=== PATIENT | female | born 1975 | race Caucasian/White ===

== ENCOUNTER 2023-03-20 09:12 | Day surgery (SDC) | payer OTHER, SELFPAY ==
[2023-03-20] VITALS (11 sets, daily range): BP systolic 87–123; BP diastolic 55–74; PULSE 76–105; RESP 14–21; TEMP 36.6–37.6; O2SAT 96–100; BMI 29.2
--- NOTE | 2023-03-20 10:02 | PC.NURSE ---
Pt states that she has hx of crohns disease and surgey of perineal
--- NOTE | 2023-03-20 10:55 | ED_ITS ---
HPI - Skin/Abscess/Foreign Bdy <Gustavo Fox PA-C - Last Filed: 03/20/23 17:18> General Chief complaint: Skin/Abscess/Foreign Body Stated complaint: abscess Time Seen by Provider: 03/20/23 09:15 Source: patient Mode of arrival: Ambulatory Limitations: no limitations History of Present Illness HPI narrative: This is a 47-year-old female presents to the emergency department due to pain to her gluteal area onset 2 days ago. She states she has a history of a perirectal 20 years ago which was drained in surgery. She states she was some issue over there. She reports new pain building up the scar tissue with erythema. She also reports some subjective fevers and chills. Denies any other concerning signs or symptoms. Related Data Home Medications Medication Instructions Recorded Confirmed mesalamine 250 mg capsule,extended 250 mg PO 3XD 03/20/23 03/20/23 release Previous Rx's Medication Instructions Recorded acetaminophen 325 mg capsule 650 mg (2 x 325 mg) PO QID PRN 03/20/23 (Tylenol) pain #60 caps docusate sodium 100 mg capsule 100 mg PO BID #30 caps 03/20/23 (Colace) ibuprofen 200 mg tablet 400 mg (2 x 200 mg) PO Q6H #60 tabs 03/20/23 oxycodone 5 mg tablet 5 mg PO Q6H PRN pain #20 tabs 03/20/23 Allergies Allergy/AdvReac Type Severity Reaction Status Date / Time No Known Drug Allergies Allergy Verified 03/20/23 14:53 Review of Systems <Gustavo Fox PA-C - Last Filed: 03/20/23 17:18> Review of Systems Narrative: GENERAL: Denies chills, fatigue, malaise, fever, sweats. HEENT: Denies sinus pain, ear pain, sore throat, difficulty swallowing, dizziness. RESPIRATORY: Denies dyspnea, cough, wheezing, hemoptysis, sputum. CARDIOVASCULAR: Denies chest pain, palpitations, orthopnea, edema, GASTROINTESTINAL: Denies nausea, vomiting, abdominal pain, diarrhea, constipation, melena. : Denies dysuria, frequency, incontinence, hematuria, urinary retention. MUSCULOSKELETAL: denies weakness, joint pain, or bony pain SKIN: Gluteal abscess NEUROLOGIC: Denies weakness, headache, numbness, change in speech, confusion, seizures, incoordination. PSYCHIATRIC: No concerning psychosocial issues. 12 point review of systems is negative except for those stated above Patient History <Gustavo Fox PA-C - Last Filed: 03/20/23 17:18> Medical History (Updated 03/20/23 @ 15:03 by Ze Naranjo MD) Ulcerative colitis Social History household members: spouse Smoking Status: Never smoker alcohol intake: former Smoking Status: Never smoker Substance Use Type: does not use Exam <Gustavo Fox PA-C - Last Filed: 03/20/23 17:18> Narrative Exam Narrative: GENERAL: Well-developed patient, in mild distress. HEAD: Atraumatic. Normocephalic. EYES: Pupils equal round and reactive. Extraocular motions intact. No scleral icterus. No injection or drainage. ENT: Nose without bleeding, purulent drainage. Throat without erythema, tonsillar hypertrophy or exudate. Airway patent. NECK: Trachea midline. Non tender CARDIOVASCULAR: Regular rate and rhythm without murmurs, gallops, or rubs. RESPIRATORY: Clear to auscultation. Breath sounds equal bilaterally. No wheezes, rales, or rhonchi. GASTROINTESTINAL: Abdomen soft, non-tender, nondistended. EXTREMITIES: No edema or joint tenderness. BACK: Nontender without deformity or crepitance. No flank tenderness. NEURO: AOx3. SKIN: To the left gluteal fold there is a palpable area of fluctuance with surrounding erythema approximately 8 cm in Initial Vital Signs Initial Vital Signs: Vital Signs Temperature 98.5 F 03/20/23 09:26 Pulse Rate 105 H 03/20/23 09:26 Respiratory Rate 18 03/20/23 09:26 Blood Pressure 118/62 03/20/23 09:26 Pulse Oximetry 97 03/20/23 09:26 Oxygen Delivery Method Room Air 03/20/23 09:26 <Suresh Kirk DO - Last Filed: 03/21/23 09:08> Initial Vital Signs Initial Vital Signs: Vital Signs Temperature 98.5 F 03/20/23 09:26 Pulse Rate 105 H 03/20/23 09:26 Respiratory Rate 18 03/20/23 09:26 Blood Pressure 118/62 03/20/23 09:26 Pulse Oximetry 97 03/20/23 09:26 Oxygen Delivery Method Room Air 03/20/23 09:26 Course <Gustavo Fox PA-C - Last Filed: 03/20/23 17:18> Orders Ordered: Discontinued Medications Bupivacaine HCl (Bupivacaine 0.25% (Pf) Vial) 30 ml INJ NOW ONE Stop: 03/20/23 15:36 Last Admin: 03/20/23 15:35 Dose: 30 ml Documented By: BRITTANY Hydromorphone HCl (Hydromorphone 1 Mg Inj) 0 mg IV Q5MIN PRN PRN Reason: Mod-severe pain Sodium Chloride (Normal Saline 0.9%) 1,000 mls @ 1,000 mls/hr IV BOLUS ONE Stop: 03/20/23 12:35 Last Infusion: 03/20/23 13:02 Dose: Infused Documented By: Admin: 03/20/23 11:40 Dose: 1,000 mls/hr Documented By: STEFFI Piperacillin Sod/Tazobactam (Sod 4.5 gm/ Sodium Chloride) 100 mls @ 200 mls/hr IV NOW ONE Stop: 03/20/23 12:41 Last Infusion: 03/20/23 14:09 Dose: Infused Documented By: Admin: 03/20/23 12:58 Dose: 200 mls/hr Documented By: STEFFI Vancomycin HCl (Vancomycin) 1,000 mg in 200 mls @ 200 mls/hr IV NOW ONE Stop: 03/20/23 13:39 Last Infusion: 03/20/23 14:52 Dose: Infused Documented By: Infusion: 03/20/23 14:13 Dose: 0 mls/hr Documented By: Admin: 03/20/23 13:34 Dose: 200 mls/hr Documented By: STEFFI Lactated Ringer's (Lactated Ringers) 1,000 mls @ 42 mls/hr IV CONT SAFIA Last Infusion: 03/20/23 16:57 Dose: Infused Documented By: Infusion: 03/20/23 14:51 Dose: 42 mls/hr Documented By: Infusion: 03/20/23 14:13 Dose: 0 mls/hr Documented By: Admin: 03/20/23 14:06 Dose: 42 mls/hr Documented By: HUNG Acetaminophen (Ofirmev) 1,000 mg in 100 mls @ 400 mls/hr IV NOW ONE Stop: 03/20/23 15:46 Last Infusion: 03/20/23 15:50 Dose: Infused Documented By: Admin: 03/20/23 15:35 Dose: 400 mls/hr Documented By: OSBALDO Ketorolac Tromethamine (Ketorolac 30 Mg/Ml Vial) 15 mg IV NOW ONE Stop: 03/20/23 13:47 Last Admin: 03/20/23 14:06 Dose: 15 mg Documented By: HUNG Metoclopramide HCl (Metoclopramide 10 Mg/2 Ml Inj) 10 mg IV NOW PRN PRN Reason: Nausea And Vomiting Ondansetron HCl (Ondansetron 4 Mg/2 Ml Inj) 4 mg IV NOW PRN PRN Reason: Nausea And Vomiting Consultations Consultation #1: 12 40: Discussed case with the on-call surgeon, Dr. Zafar, who is going to check on OR availability for possible OR today. will call us back. Consultation #2: 1400: Received call from OR stating that patient will be taken for next case. Vital Signs Vital signs: Vital Signs - 8 hr 03/20/23 09:26 03/20/23 10:43 03/20/23 11:34 Temperature 98.5 F 98.5 F Pulse Rate 105 H 79 85 Respiratory Rate 18 19 14 Blood Pressure 118/62 123/74 95/55 L Pulse Oximetry 97 97 98 Oxygen Delivery Method Room Air Room Air 03/20/23 12:35 03/20/23 13:43 03/20/23 14:39 Temperature 97.8 F Pulse Rate 80 80 83 Respiratory Rate 16 18 18 Blood Pressure 115/69 113/58 L 104/60 Pulse Oximetry 100 99 100 Oxygen Delivery Method Room Air Room Air Room Air 03/20/23 15:50 03/20/23 15:55 Temperature 99.7 F H Pulse Rate 78 83 Respiratory Rate 21 18 Blood Pressure 87/57 L 91/64 Pulse Oximetry 96 100 Oxygen Delivery Method Room Air Room Air <Suresh Kirk, - Last Filed: 03/21/23 09:08> Orders Ordered: Discontinued Medications Bupivacaine HCl (Bupivacaine 0.25% (Pf) Vial) 30 ml INJ NOW ONE Stop: 03/20/23 15:36 Last Admin: 03/20/23 15:35 Dose: 30 ml Documented By: BRITTANY Hydromorphone HCl (Hydromorphone 1 Mg Inj) 0 mg IV Q5MIN PRN PRN Reason: Mod-severe pain Sodium Chloride (Normal Saline 0.9%) 1,000 mls @ 1,000 mls/hr IV BOLUS ONE Stop: 03/20/23 12:35 Last Infusion: 03/20/23 13:02 Dose: Infused Documented By: Admin: 03/20/23 11:40 Dose: 1,000 mls/hr Documented By: STEFFI Piperacillin Sod/Tazobactam (Sod 4.5 gm/ Sodium Chloride) 100 mls @ 200 mls/hr IV NOW ONE Stop: 03/20/23 12:41 Last Infusion: 03/20/23 14:09 Dose: Infused Documented By: Admin: 03/20/23 12:58 Dose: 200 mls/hr Documented By: STEFFI Vancomycin HCl (Vancomycin) 1,000 mg in 200 mls @ 200 mls/hr IV NOW ONE Stop: 03/20/23 13:39 Last Infusion: 03/20/23 14:52 Dose: Infused Documented By: Infusion: 03/20/23 14:13 Dose: 0 mls/hr Documented By: Admin: 03/20/23 13:34 Dose: 200 mls/hr Documented By: STEFFI Lactated Ringer's (Lactated Ringers) 1,000 mls @ 42 mls/hr IV CONT SAFIA Last Infusion: 03/20/23 16:57 Dose: Infused Documented By: Infusion: 03/20/23 14:51 Dose: 42 mls/hr Documented By: Infusion: 03/20/23 14:13 Dose: 0 mls/hr Documented By: Admin: 03/20/23 14:06 Dose: 42 mls/hr Documented By: HUNG Acetaminophen (Ofirmev) 1,000 mg in 100 mls @ 400 mls/hr IV NOW ONE Stop: 03/20/23 15:46 Last Infusion: 03/20/23 15:50 Dose: Infused Documented By: Admin: 03/20/23 15:35 Dose: 400 mls/hr Documented By: OSBALDO Ketorolac Tromethamine (Ketorolac 30 Mg/Ml Vial) 15 mg IV NOW ONE Stop: 03/20/23 13:47 Last Admin: 03/20/23 14:06 Dose: 15 mg Documented By: SB Metoclopramide HCl (Metoclopramide 10 Mg/2 Ml Inj) 10 mg IV NOW PRN PRN Reason: Nausea And Vomiting Ondansetron HCl (Ondansetron 4 Mg/2 Ml Inj) 4 mg IV NOW PRN PRN Reason: Nausea And Vomiting Vital Signs Vital signs: Vital Signs - 8 hr 03/20/23 09:26 03/20/23 10:43 03/20/23 11:34 Temperature 98.5 F 98.5 F Pulse Rate 105 H 79 85 Respiratory Rate 18 19 14 Blood Pressure 118/62 123/74 95/55 L Pulse Oximetry 97 97 98 Oxygen Delivery Method Room Air Room Air 03/20/23 12:35 03/20/23 13:43 03/20/23 14:39 Temperature 97.8 F Pulse Rate 80 80 83 Respiratory Rate 16 18 18 Blood Pressure 115/69 113/58 L 104/60 Pulse Oximetry 100 99 100 Oxygen Delivery Method Room Air Room Air Room Air 03/20/23 15:50 03/20/23 15:55 Temperature 99.7 F H Pulse Rate 78 83 Respiratory Rate 21 18 Blood Pressure 87/57 L 91/64 Pulse Oximetry 96 100 Oxygen Delivery Method Room Air Room Air MDM - Skin/Abscess/Foreign Bdy <Gustavo Fox PA-C - Last Filed: 03/20/23 17:18> Lab Data 03/20/23 09:57 03/20/23 09:57 Labs: Lab Results 03/20/23 Range/Units 09:57 WBC 14.8 H (4.5-11.0) X10^3/uL RBC 4.37 (4.0-5.2) X10^6/uL Hgb 12.9 (12.0-16.0) g/dL Hct 38.1 (36-46) % MCV 87.0 (80-100) fL MCH 29.5 (26-34) PG MCHC 33.9 (30-36) % RDW 13.6 (11.6-14.8) % Plt Count 348 (150-400) X10^3/uL Neut % (Auto) 75.6 H (50-75) % Lymph % (Auto) 13.7 L (25-40) % Bartholomew % (Auto) 9.8 (3-14) % Eos % (Auto) 0.5 L (2-4) % Baso % (Auto) 0.4 (0-2) % Neut # (Auto) 21426 H (6485-3632) /uL Lymph # (Auto) 2000 (5689-5505) /uL Bartholomew # (Auto) 1400 H (0-900) /uL Eos # (Auto) 100 (0-450) /uL Baso # (Auto) 100 (0-100) /uL Sodium 136 L (137-145) mmol/L Potassium 3.5 (3.4-5.1) mmol/L Chloride 103 (98-107) mmol/L Carbon Dioxide 23 (22-32) mmol/L BUN 13 (7-17) mg/dL Creatinine 0.79 (0.52-1.04) mg/dL Estimated GFR > 60 (>60) mL/min BUN/Creatinine Ratio 16.5 (6-22) Glucose 109 H (70-100) mg/dL Lactate 1.0 (0.7-2.1) mmol/L Calcium 9.5 (8.4-10.2) mg/dL Total Bilirubin 0.8 (0.2-1.3) mg/dL AST 29 (14-36) IU/L ALT 24 (<35) IU/L Alkaline Phosphatase 79 (38-126) U/L Total Protein 8.0 (6.3-8.2) g/dL Albumin 4.3 (3.5-5.0) g/dL Globulin 3.7 (1.7-4.1) g/dL Albumin/Globulin Ratio 1.2 (1.0-2.8) Imaging Data CT scan - abdomen/pelvis: Radiologist's Impression: [place] [id number] CT Scan Report Signed Patient: Korina Campuzano MR#: [id number] : 1975 Acct:[id number] Age/Sex: 47 / F Date of Service: 03/20/23 Loc: ED Accession Number: [id number] Procedure: CT abdomen pelvis w con Ordering Provider: Gustavo Fox P.A-C PROCEDURE: CT ABDOMEN PELVIS W CON INDICATIONS: possible perirectal abscess TECHNIQUE: After the administration of intravenous contrast, axial sections acquired from the lung bases to the pubic symphysis. Coronal and sagittal reformats were performed. For radiation dose reduction, the following was used: automated exposure control, adjustment of mA and/or kV according to patient size. COMPARISON: None. FINDINGS: Image quality: Excellent. Lung bases: Unremarkable. Heart: No significant findings. ABDOMEN: Liver: Unremarkable. Gallbladder: Unremarkable. Biliary ducts: Unremarkable. Pancreas: Unremarkable. Spleen: Multiple splenic calcifications are present. Adrenal Glands: Unremarkable. Kidneys and Ureters: Unremarkable. Stomach and Bowel: Stomach, small bowel loops, and colon are unremarkable. Normal appendix. Peritoneum: No abnormal intraperitoneal fluid. No free air. Ventral Wall: No hernias. Abdominal Nodes: No retroperitoneal or mesenteric adenopathy by size criteria. Vessels: Aorta and inferior vena cava are normal in size. PELVIS: Pelvic Organs: Unremarkable. Bladder: Unremarkable. Pelvic Nodes: No enlarged lymph nodes. Miscellaneous: No hernias are seen. Within the left ischial rectal fossa medially, there is a peripherally enhancing low-density focus at the left lateral aspect of the anal rectal junction, measuring roughly 25 mm anteroposterior, with an adjacent fistulous tract extending inferomedially to the gluteal crease, with severe surrounding fat stranding. Bones: Unremarkable. IMPRESSION: 1. Perirectal abscess as described above. 2. Normal appendix. Dictated by: Federica Head M.D. on 03/20/2023 at 12:27 Approved by: Federica Head M.D. on 03/20/2023 at 12:28 MDM Narrative Medical decision making narrative: MDM * differential diagnosis includes but not limited to cellulitis, perirectal abscess, perirectal fistula * Prior records reviewed: Patient has not been to the emergency department in the past. * My lab interpretation: Showed mild leukocytosis of 14.8. Lactate within normal limits. * My imgaing interpretation: CT findings as above. Evidence of perirectal abscess with a fistulous tract. * Clinical Decision Rules/Scores evaluated: None * Independent discussions with: None ED Course: This is a 47-year-old female presents emergency department complaining of perirectal pain for the last couple of days. She has a history of perirectal abscess needing surgery approximately 20 years ago. Lab work showed mild leukocytosis of 14.8. Patient was given fluids, blood cultures drawn. Given vancomycin and Zosyn empirically. CT ordered which showed evidence of the perirectal abscess with a fistula tract. This was discussed with on-call surgeon, Dr. Zafar, who stated that the patient will be taken to the OR after he checked for OR availability. Patient will be taken to the OR and admitted to the hospital Shared Decision Making: Discussed plan with the patient who is comfortable with the plan Social Considerations: None Disposition: Admitted for surgery <Surseh Kirk DO - Last Filed: 03/21/23 09:08> Lab Data Labs: Lab Results 03/20/23 Range/Units 09:57 WBC 14.8 H (4.5-11.0) X10^3/uL RBC 4.37 (4.0-5.2) X10^6/uL Hgb 12.9 (12.0-16.0) g/dL Hct 38.1 (36-46) % MCV 87.0 (80-100) fL MCH 29.5 (26-34) PG MCHC 33.9 (30-36) % RDW 13.6 (11.6-14.8) % Plt Count 348 (150-400) X10^3/uL Neut % (Auto) 75.6 H (50-75) % Lymph % (Auto) 13.7 L (25-40) % Bartholomew % (Auto) 9.8 (3-14) % Eos % (Auto) 0.5 L (2-4) % Baso % (Auto) 0.4 (0-2) % Neut # (Auto) 76084 H (0479-5661) /uL Lymph # (Auto) 2000 (3472-3141) /uL Bartholomew # (Auto) 1400 H (0-900) /uL Eos # (Auto) 100 (0-450) /uL Baso # (Auto) 100 (0-100) /uL Sodium 136 L (137-145) mmol/L Potassium 3.5 (3.4-5.1) mmol/L Chloride 103 (98-107) mmol/L Carbon Dioxide 23 (22-32) mmol/L BUN 13 (7-17) mg/dL Creatinine 0.79 (0.52-1.04) mg/dL Estimated GFR > 60 (>60) mL/min BUN/Creatinine Ratio 16.5 (6-22) Glucose 109 H (70-100) mg/dL Lactate 1.0 (0.7-2.1) mmol/L Calcium 9.5 (8.4-10.2) mg/dL Total Bilirubin 0.8 (0.2-1.3) mg/dL AST 29 (14-36) IU/L ALT 24 (<35) IU/L Alkaline Phosphatase 79 (38-126) U/L Total Protein 8.0 (6.3-8.2) g/dL Albumin 4.3 (3.5-5.0) g/dL Globulin 3.7 (1.7-4.1) g/dL Albumin/Globulin Ratio 1.2 (1.0-2.8) Discharge Plan Departure Patient Disposition: Admitted as Observation Clinical Impression: Abscess, perirectal ED Sign-out <Suresh Kirk DO - Last Filed: 03/21/23 09:08> Cosign ED Attending Vinodature Attestation: I was immediately available in the department for consultation. Documentation has been reviewed. I agree with assessment and plan.
--- NOTE | 2023-03-20 11:13 | DI.CT.S_ITS ---
PROCEDURE: CT ABDOMEN PELVIS W CON INDICATIONS: possible perirectal abscess TECHNIQUE: After the administration of intravenous contrast, axial sections acquired from the lung bases to the pubic symphysis. Coronal and sagittal reformats were performed. For radiation dose reduction, the following was used: automated exposure control, adjustment of mA and/or kV according to patient size. COMPARISON: None. FINDINGS: Image quality: Excellent. Lung bases: Unremarkable. Heart: No significant findings. ABDOMEN: Liver: Unremarkable. Gallbladder: Unremarkable. Biliary ducts: Unremarkable. Pancreas: Unremarkable. Spleen: Multiple splenic calcifications are present. Adrenal Glands: Unremarkable. Kidneys and Ureters: Unremarkable. Stomach and Bowel: Stomach, small bowel loops, and colon are unremarkable. Normal appendix. Peritoneum: No abnormal intraperitoneal fluid. No free air. Ventral Wall: No hernias. Abdominal Nodes: No retroperitoneal or mesenteric adenopathy by size criteria. Vessels: Aorta and inferior vena cava are normal in size. PELVIS: Pelvic Organs: Unremarkable. Bladder: Unremarkable. Pelvic Nodes: No enlarged lymph nodes. Miscellaneous: No hernias are seen. Within the left ischial rectal fossa medially, there is a peripherally enhancing low-density focus at the left lateral aspect of the anal rectal junction, measuring roughly 25 mm anteroposterior, with an adjacent fistulous tract extending inferomedially to the gluteal crease, with severe surrounding fat stranding. Bones: Unremarkable. IMPRESSION: 1. Perirectal abscess as described above. 2. Normal appendix. Dictated by: Federica Head M.D. on 03/20/2023 at 12:27 Approved by: Federica Head M.D. on 03/20/2023 at 12:28
[2023-03-20] MEDS: SODIUM CHLORIDE 0.9% 1,000 ML 1000 ML IV (11:40)
[2023-03-20 11:42] LABS: Add Manual Diff / Slide Review NO; Basophils Absolute Auto 100 /uL (0-100); Basophils Percent Auto 0.4 % (0-2); Eosinophils Absolute Auto 100 /uL (0-450); Eosinophils Percent Auto 0.5 % (2-4); Hematocrit 38.1 % (36-46); Hemoglobin 12.9 g/dL (12.0-16.0); Lymphocytes Absolute Auto 2000 /uL (1100-4500); Lymphocytes Percent Auto 13.7 % (25-40); Mean Corpuscular HGB Conc 33.9 % (30-36); Mean Corpuscular Hemoglobin 29.5 PG (26-34); Monocytes Absolute Auto 1400 /uL (0-900); Monocytes Percent Auto 9.8 % (3-14); Neutrophils Absolute Auto 11200 /uL (1500-7000); Neutrophils Percent Auto 75.6 % (50-75); Platelet Count 348 X10^3/uL (150-400); Red Blood Cell Count 4.37 X10^6/uL (4.0-5.2); Red Cell Distribution Width 13.6 % (11.6-14.8); White Blood Cell Count 14.8 X10^3/uL (4.5-11.0)
[2023-03-20 11:49] LABS: Alanine Aminotransferase 24 IU/L (<35); Albumin 4.3 g/dL (3.5-5.0); Albumin Globulin Ratio 1.2 (1.0-2.8); Alkaline Phosphatase 79 U/L (38-126); Aspartate Aminotransferase 29 IU/L (14-36); BUN Creatinine Ratio 16.5 (6-22); Bilirubin Total 0.8 mg/dL (0.2-1.3); Blood Urea Nitrogen 13 mg/dL (7-17); Calcium 9.5 mg/dL (8.4-10.2); Carbon Dioxide 23 mmol/L (22-32); Chloride 103 mmol/L (98-107); Estimated Glomerular Filt Rate > 60 mL/min (>60); Globulin 3.7 g/dL (1.7-4.1); Glucose 109 mg/dL (70-100); HEMOLYSIS < 15 (0-50); Potassium 3.5 mmol/L (3.4-5.1); Sodium 136 mmol/L (137-145)
[2023-03-20] MEDS: PIPERACILLIN/TAZO 4.5 GM in SODIUM CHLORIDE 0.9% 100 ML IV (12:58)
[2023-03-20] MEDS: VANCOMYCIN 1,000 MG/200 ML PIGGYBACK 200 MG IV (13:34)
[2023-03-20] MEDS: KETOROLAC 30 MG/ML VIAL 15 MG IV (14:06)
[2023-03-20] MEDS: LACTATED RINGERS 1,000 ML 42 ML IV (14:06)
--- NOTE | 2023-03-20 14:59 | P.HP_ITS ---
History of Present Illness History of Present Illness Date Patient Seen: 03/20/23 Time Patient Seen: 14:59 Chief complaint: abscess Narrative: 47-year-old woman with a history of ulcerative colitis and perirectal abscess who presents to the [facility] Emergency Department with rectal pain. Developed over the past 2 days associated with subjective fever and chills. No active drainage. Her ulcerative colitis is managed with low-dose mesalamine, no prior intestinal surgery. No urinary or fecal incontinence. [facility] Medical History (Updated 03/20/23 @ 15:03 by Ze Naranjo MD) Ulcerative colitis Social History household members: spouse Smoking Status: Never smoker alcohol intake: former Meds Home Medications and Allergies Home Medications Medication Instructions Recorded Confirmed Type mesalamine 250 mg capsule,extended 250 mg PO 3XD 03/20/23 03/20/23 History release Allergies Allergy/AdvReac Type Severity Reaction Status Date / Time No Known Drug Allergies Allergy Verified 03/20/23 14:53 Exam Vital Signs (past 8 hours): - 03/20/23 09:26 03/20/23 10:43 03/20/23 11:34 Temperature 98.5 F 98.5 F Pulse Rate 105 H 79 85 Respiratory Rate 18 19 14 Blood Pressure 118/62 123/74 95/55 L Pulse Oximetry 97 97 98 Oxygen Delivery Method Room Air Room Air 03/20/23 12:35 03/20/23 13:43 03/20/23 14:39 Temperature 97.8 F Pulse Rate 80 80 83 Respiratory Rate 16 18 18 Blood Pressure 115/69 113/58 L 104/60 Pulse Oximetry 100 99 100 Oxygen Delivery Method Room Air Room Air Room Air Oxygen Delivery Method Room Air Narrative Exam Narrative: GENERAL: A well nourished, well developed adult woman, resting comfortably, in no acute distress. HEENT: Normocephalic, atraumatic. No scleral icterus CHEST: Rising symmetrically. No audible wheezes CARDIOVASCULAR: Warm and well perfused. Regular rate ABDOMEN: Soft, non-tender, non-distended EXTREMITIES: Normal tone and without edema. NEUROLOGIC: Moving all extremities spontaneously. No gross motor deficits. Objective Labs 03/20/23 09:57 03/20/23 09:57 Labs: Laboratory Results - last 24 hr 03/20/23 09:57 WBC 14.8 H RBC 4.37 Hgb 12.9 Hct 38.1 MCV 87.0 MCH 29.5 MCHC 33.9 RDW 13.6 Plt Count 348 Neut % (Auto) 75.6 H Lymph % (Auto) 13.7 L Grundy % (Auto) 9.8 Eos % (Auto) 0.5 L Baso % (Auto) 0.4 Neut # (Auto) 99794 H Lymph # (Auto) 2000 [place] # (Auto) 1400 H Eos # (Auto) 100 Baso # (Auto) 100 Sodium 136 L Potassium 3.5 Chloride 103 Carbon Dioxide 23 BUN 13 Creatinine 0.79 Estimated GFR > 60 BUN/Creatinine Ratio 16.5 Glucose 109 H Lactate 1.0 Calcium 9.5 Total Bilirubin 0.8 AST 29 ALT 24 Alkaline Phosphatase 79 Total Protein 8.0 Albumin 4.3 Globulin 3.7 Albumin/Globulin Ratio 1.2 Assessment & Plan Assessment and plan (1) Abscess, perirectal: Problem details: 47-year-old woman history of ulcerative colitis with a perirectal abscess. Rectal examination under anesthesia with incision and drainage of abscess, possible fistulotomy. Overview of the procedure was discussed. Operative risks including hemorrhage, recurrence, incontinence were discussed. Questions have been answered she is in agreement with this plan. She provides her written and verbal consent to proceed. Status: Acute
[2023-03-20] MEDS: BUPIVACAINE 0.25% (PF) VIAL 30 ML INJ (15:35)
[2023-03-20] MEDS: ACETAMINOPHEN IV 1,000 MG/100 ML VIAL 400 MG IV (15:35)
--- NOTE | 2023-03-20 15:37 | SUR.OPER ---
Lithotomy on padded OR bed, head on pillow, arms secured on padded arm boards at <90 degrees abduction. Legs secured in padded yellow fins stirrups.
--- NOTE | 2023-03-20 17:21 | PM.OP.1 ---
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 Bilateral lower extremity compression devices applied. General anesthesia was induced he was intubated with an endotracheal tube. She was positioned into lithotomy position and was prepped and draped in sterile fashion. Time-out was performed. Large pustule on the skin of the buttocks present at the 3 o'clock position in lithotomy. Internal examination of the rectum resulted in spontaneous discharge from the area of purulence. Lacrimal probe was placed through the external point of drainage and exits into the rectum in a supra sphincteric position. A Melissa drain was placed through the wound. Patient tolerated the procedure well was transferred to recovery in stable condition. Complications: none Post-operative Condition: stable Disposition: same day surgery
== END 2023-03-20 16:53 | disposition home or self-care (01) ==
LOC: ED 14:03 → AC 16:21 → OR 03-21 06:15
PROVIDERS: Surgery; Emergency Provider Physician Assistant Medical; Referring Provider Physician Assistant Medical; Visit Provider Surgery
PROC: (CPT 46040; principal; 2023-03-20 15:30)
DX: K61.1 Rectal abscess (principal)
CPT/HCPCS: 46280; 36415; 74177; 80053; 83605; 85025; 87040; 87070; 87075; 87077; 87147; 87205; 96365; 96368; 96375; 99221; 99283; 99284; G0378; J0131; J1100; J1885; J2405; J2543; J2704; J3010; Q9967